=== PATIENT | male | born 1985 | race Asian ===

== ENCOUNTER 2022-09-03 10:23 | Emergency (ER) | payer OTHER, SELFPAY ==
[2022-09-03 10:29] VITALS: BP 144/100; PULSE 77; RESP 18; TEMP 36.3; O2SAT 98; BMI 27.4
--- NOTE | 2022-09-03 11:20 | ED_ITS ---
HPI - General Adult General Chief complaint: Ear/Nose/Throat Problem Stated complaint: Blurred vision, dizzy, nausea Time Seen by Provider: 09/03/22 10:54 History of Present Illness HPI narrative: Generally healthy 37-year-old man presenting to the emergency department with a few concerns. Went to the urgent care with a sensation of lightheadedness and difficulty breathing. This was all preceded upon waking with some blurriness in his right eye. He splashed some water on his face and that did not change things went to lay down and during that period of time then started to feel more lightheaded and short of breath. (The blurriness has essentially resolved ended sore the period of about an hour and a half) Does not describe any peripheral cramping or tingling. No sense of irregular heartbeats. He does recall similar episode actually around time of COVID diagnosis in November of this year. He had chest x-ray and other evaluations done at that point which apparently turned out all right. Does not recall having had an EKG at that time. I noted to be a little bit congested here. He does say that his been having popping in his right ear lately. They had gone to the store to get wax removal drops but have not used it yet. They have planned to follow-up or at least call tomorrow for an appointment related to this and possibly excessive snoring as described by his significant other who accompanies him here today. h/o lasik Related Data Home Medications Medication Instructions Recorded Confirmed No Known Home Medications 09/03/22 09/03/22 Allergies Allergy/AdvReac Type Severity Reaction Status Date / Time No Known Drug Allergies Allergy Verified 09/03/22 10:35 Review of Systems Status of ROS: Reports: 10 or more systems reviewed and unremarkable except as noted in History and below [facility] Social History How often do you have a drink containing alcohol: never AUDIT-C Alcohol total score: 0 Non-prescribed substance use: denies use Exam Narrative: Exam Narrative: Pleasant. NAD. Breathing easily. Cranial nerves 2-12 intact. pupils are brisk. Moving all extremities without difficulty. No apparent sensory loss. No edema. Lungs are clear. Cardiovascular with regular rate and rhythm no murmur rub or gallop. Oropharynx is unremarkable Eyes look parallel with reflection. Funduscopic exam looks normal bilaterally. Const: Vital Signs, click to edit/add: Vital Signs - 24 hr 09/03/22 10:29 Temperature 97.4 F L Pulse Rate [Right Pulse Oximeter] 77 Respiratory Rate 18 Blood Pressure [Ri ght Upper Arm] 144/100 H Pulse Oximetry 98 Oxygen Delivery Me thod Room Air Documenting provider has reviewed patient's vital signs: yes Course Course Hospital Course: Monitored in the ER. No intervention required. EKG reviewed by me shows sinus rhythm with sinus arrhythmia rate of 65. No ischemic changes evident. We did do Vital Signs Vital signs: Initial Vital Signs Temperature 97.4 F L 09/03/22 10:29 Temperature Source Temporal Artery Scan 09/03/22 10:29 Pulse Rate 77 09/03/22 10:29 Respiratory Rate 18 09/03/22 10:29 Blood Pressure 144/100 H 09/03/22 10:29 Blood Pressure Mean 114 09/03/22 10:29 Blood Pressure Position Sitting 09/03/22 10:29 Pulse Oximetry 98 09/03/22 10:29 Oxygen Delivery Method 09/03/22 10:29 Vital Signs Temperature 97.4 F L 09/03/22 10:29 Pulse Rate 77 09/03/22 10:29 Respiratory Rate 18 09/03/22 10:29 Blood Pressure 144/100 H 09/03/22 10:29 Pulse Oximetry 98 09/03/22 10:29 Oxygen Delivery Method 09/03/22 10:29 Temperature 97.4 F L 09/03/22 10:29 Pulse Rate 77 09/03/22 10:29 Respiratory Rate 18 09/03/22 10:29 Blood Pressure 144/100 H 09/03/22 10:29 Pulse Oximetry 98 09/03/22 10:29 Oxygen Delivery Method 09/03/22 10:29 Discharge Plan Discharge Clinical Impression: Blurred vision, Panic attack Patient Disposition: Home w/ Parent or Adult Condition: Improved Additional Instructions: Yes, it sounds like it might be worth a visit here primary care clinic/provider to consider an evaluation for sleep study. Regarding the popping you are hearing in your ear, might benefit from pseu doephedrine decongestant or 2 weeks at least of a nasal steroid spray. If this blurriness recurs not improving after 1-2 hours, be seen. Regardless I would in the short term schedule an appointment with your eye clinic for repeat exam. Prescriptions: No Action No Known Home Medications Follow Up/Referrals: Provider,Not a Local [Primary Care Provider] - Stand Alone Forms: [facility] Info Instructions
== END 2022-09-03 12:39 | disposition home or self-care (01) ==
PROVIDERS: Emergency Provider Family Medicine
DX: H53.8 Other visual disturbances (principal); F41.0 Panic disorder [episodic paroxysmal anxiety]
CPT/HCPCS: 93005; 99283